=== PATIENT | female | born 1965 | race Hispanic/Latino ===

== ENCOUNTER 2024-09-20 18:34 | Emergency (ER) | payer BC ==
[~2024-09-20] VITALS: Ht 157.5 cm; Wt 76.2 kg
--- NOTE | 2024-09-20 18:45 | NUR ---
SEEN BY MANJEET SHEFFIELD AT TRIAGE, NOTIFIED OF B/P 171/, NO NEW ORDERS AT THIS TIME, NO HX OF HTN
--- NOTE | 2024-09-20 18:52 | ERN ---
ED Note History of Present Illness Stated Complaint: BODY PAINS Time Seen by MD: 18:35 Time Seen by Midlevel: 18:35 Dictation: Ms. Bhatt is a 59 year old female with no reported chronic health issues who presented to the Emergency Department this evening for evaluation of hip/back pain. She states that Thursday she developed right hip pain/radiating to the low back which has gotten progressively worse. She saw her PCP yesterday and was prescribed ibuprofen but it has not seem to help. She denies trauma/fall. She denies any fever, chills, shortness of breath, cough, chest pain, palpitations, edema, abdominal pain, nausea, vomiting, diarrhea, dysuria, incontinence bowel/bladder, focal weakness/paresthesia, headache, or dizziness.Upon arrival to the emergency department pain 8/10. Noted elevated blood pressure reading of 173/83. Allergies: Coded Allergies: No Known Drug Allergies (Unverified Allergy, Unknown, 09/20/24) Emergency Care VIDEO GAME PROGRAMMER: None Past Medical History Past Medical History: No Pertinent History Surgical History: None PSYCH History: no pertinent psych hx Social History: Negative, Lives with family History: Not Applicable RN Note Reviewed/Agreed w/PFSH: Yes Review of System Dictation REVIEW OF SYSTEMS: CONSTITUTIONAL: Patient denies fevers, chills, sweats and weight changes. EYES: Patient denies any visual symptoms. EARS, NOSE, AND THROAT: No difficulties with hearing. No symptoms of rhinitis or sore throat. CARDIOVASCULAR: Patient denies chest pains, palpitations, orthopnea and paroxysmal nocturnal dyspnea. RESPIRATORY: No dyspnea on exertion, no wheezing or cough. GI: No nausea, vomiting, diarrhea, constipation, abdominal pain, hematochezia or melena. : No urinary hesitancy or dribbling. No nocturia or urinary frequency. No hematuria. No incontinence. No abnormal urethral discharge. MUSCULOSKELETAL: States that on Thursday she developed right hip pain radiating to the right lower back. NEUROLOGIC: No chronic headaches, no seizures. Patient denies numbness, tingling or weakness. PSYCHIATRIC: Patient denies problems with mood disturbance. No problems with anxiety. ENDOCRINE: No excessive urination or excessive thirst. DERMATOLOGIC: Patient denies any rashes or skin changes. Initial Vital Sign VS Vital Signs Date Time Temp Pulse Resp B/P (MAP) Pulse Ox O2 Delivery O2 Flow Rate FiO2 3/18/25 18:41 99.0 79 16 171/83 97 Room Air Physical Exam Dictation Vital signs: Reviewed. Afebrile. Constitutional: Uncomfortable. Head/Face: Normocephalic, atraumatic. Eyes: Periorbital areas with no swelling, redness, or edema. Lids and lashes are normal. Conjunctival injection is absent. Sclera anicteric. Pupils equal, round, reactive to light. ENT: Pinnas intact and no signs of trauma or erythema. Ear canals clear and no discharge. TMs no erythema. No nasal discharge or bleeding noted. Oropharynx with no exudate, redness, swelling, masses, exudates, or evidence of obstruction. Uvula midline. Mucous membranes moist. Neck: Trachea midline, no masses palpated, and no cervical lymphadenopathy. No swelling. Supple, full range of motion. Chest/Axilla: No tenderness, no crepitus, no paradoxical movement, no retractions. Cardiovascular: Regular rate, regular rhythm, no murmur, no gallops. Symmetric pulses. No peripheral edema. BP elevated to 173/83 Respiratory: Respirations even and unlabored. Lung sounds clear; no wheezes, rales or rhonchi. Room air spo2 98%. Gastrointestinal: Inspection is normal. No distention is appreciated. Bowel sounds are normal. No mass or organomegaly . There is no tenderness. No rebound. No rigidity. No voluntary or involuntary guarding. No Salcedo's sign. Neurological: Normal speech, gross motor function intact, gross sensory function intact. No focal weakness/Paresthesia. Musculoskeletal/Extremities: All extremities have full range of motion, Symmetric pulses. Tenderness upon palpation right lumbar. No bony deformity noted. Ambulating with steady gait; states painful hip. She has good color, warmth, movement, and sensation to right toes. Capillary refill brisk. Negative straight leg test. Pain 8/10. Integumentary: Intact. Skin is normal color, warm and dry. Cap refill less than 2 seconds. Results (Laboratory/Radiology) Laboratory/Radiology Laboratory Tests Test 09/20/24 21:22 Urine Color LIGHT-YELLOW (YELLOW) Urine Appearance CLEAR (CLEAR) Urine pH 5.5 (5.0-8.0) Urine Specific [place] 1.022 (1.001-1.031) Urine Protein NEGATIVE mg/dL (NEGATIVE) Urine Glucose (UA) NEGATIVE mg/dL (NEGATIVE) Urine Ketones NEGATIVE mg/dL (NEGATIVE) Urine Occult Blood NEGATIVE (NEGATIVE) Urine Nitrate NEGATIVE (NEGATIVE) Urine Bilirubin NEGATIVE mg/dL (NEGATIVE) Urine Urobilinogen 0.2 mg/dL (0.2-1.0) Urine Leukocyte Esterase 75 Wendy/uL (NEGATIVE) H Urine RBC 0-1 /HPF (0-1) Urine WBC 2-5 /HPF (0-1) H Urine Squamous Epithelial Cells RARE /HPF (0-2) Urine Bacteria None /HPF (None Seen) Labs Reviewed?: Yes X-RAY Comment: PATIENT: MARSHA BHATT MR#: [id number] : 1965 SEX: F AGE: 59 LOCATION: [facility] ORDER 50 STATUS: REG REPORT#: [id number] SERVICE 49 REASON: pain ORDERING PHYSICIAN: MANJEET DOMINGUEZ NP PROCEDURE: HIP U 2V R - HIP UNILAT 2-3VW RIGHT HIP UNILAT 2-3VW RIGHT INDICATION: pain TECHNIQUE: HIP UNILAT 2-3VW RIGHT. FINDINGS AND IMPRESSION: No displaced fracture or dislocation is seen. Correlate clinically. There is mild soft tissue swelling No radiopaque foreign body is identified. DICTATED BY: OTIS FRAZIER MD DATE: 09/20/241955 ELECTRONICALLY SIGNED BY: OTIS FRAZIER MD DATE: 09/20/241958 ED Course ED Course Orders Procedure Category Date Status Time Urinalysis Profile LAB 09/20/24 Complete 18:44 Diazepam 2 Mg Tab PHA 09/20/24 Complete (Valium 2 Mg Tab) 19:00 Ketorolac PHA 09/20/24 Complete Tromethamine 30mg/Ml 19:00 Hip Unilat 2-3vw Right RAD 09/20/24 Resulted 18:50 Culture Urine RANDALL 09/20/24 Logged 21:40 Current Medications Medications (Trade) Dose Ordered Sig/Marvin Route PRN Reason Start Time Stop Time Status Last Admin Dose Admin Diazepam (VALium 2 mg Tab) 2 mg ONCE ONCE PO 09/20/24 19:00 09/20/24 19:01 DC 09/20/24 21:16 Ketorolac Tromethamine (toRADol) 30 mg ONCE ONCE IM 09/20/24 19:00 09/20/24 19:01 DC 09/20/24 21:16 Vital Signs Date Time Temp Pulse Resp B/P (MAP) Pulse Ox O2 Delivery O2 Flow Rate FiO2 09/20/24 18:41 99.0 79 16 171/83 97 Room Air Uneventful ED course. Temp 99. She had relief following dose p.o. Valium and IM Toradol. X-ray of the hip/pelvis unremarkable; no fracture or dislocation. UA + leukocyte esterase andUWBC 2-5; culture pending. Received initial dose nitrofurantoin. Findings were discussed with patient and all questions answered. Medical Decision Making MDM MDM: Differential diagnosis: UTI, sciatica, muscle strain, fracture pelvis/hip Rationale: Tests considered and ordered secondary to shared decision making include: Lab, x-ray Previous outside records reviewed: Old ER visits. Risk of complication and/or morbidity or mortality of patient management: None Medications-Per medication reconciliation Need for hospitalization: Patient does not meet criteria for hospitalization. Need for emergency major/minor surgery: No There are no social concerns with this patient. Prescription drug management: Robaxin, nitrofurantoin Prescriptions will include symptomatic care Patient's prior external medical records from other ER visits were reviewed by me as indicated. Prior testing and results from previous visits were reviewed. Prior tests were taken into account with medical decision making and resource utilization, independent historian/historians were used to obtain complete medical history. I independently interpreted the test that were performed, results were reviewed by me and considered findings on radiology if ordered. Medical management and examination interpretation discussions were had by me with other qualified healthcare professionals as indicated for the patient's care. DX & DISP Disposition: Discharge Departure Impression: Primary Impression: Hip pain, right Additional Impressions: Low back pain, Elevated blood pressure reading, UTI (urinary tract infection) Condition: Stable Scripts Methocarbamol (Robaxin) 750 Mg Tab 1 TAB PO BID for 30 Days, #10 TAB 0 Refills Prov: MANJEET DOMINGUEZ [employer]ENOGRAPHIC [employer] REPORTER 09/20/24 Nitrofurantoin Macrocrystal (Nitrofurantoin) 100 Mg Capsule 1 CAP PO BID for 7 Days, #14 CAP 0 Refills Prov: MANJEET DOMINGUEZ [employer]ENOGR[employer] REPORTER 09/20/24 Additional Instructions: Rest. Drink plenty of fluids. May continue ibuprofen or [id number] Tylenol as needed for discomfort. May take Robaxin every12 hours as needed for muscle spasms. Continue nitrofurantoin twice daily for seven days for diagnosis of UTI. Keep track/log of your blood pressure readings for follow up with your PCP. Follow up with your primary care physician later this week. Return to the emergency department for any worsening of symptoms or concerns. Time of Disposition: 22:00 MANJEET DOMINGUEZ NP Sep 20, 2024 18:51
--- NOTE | 2024-09-20 19:59 | HMCIMG ---
HIP UNILAT 2-3VW RIGHT INDICATION: pain TECHNIQUE: HIP UNILAT 2-3VW RIGHT. FINDINGS AND IMPRESSION: No displaced fracture or dislocation is seen. Correlate clinically. There is mild soft tissue swelling No radiopaque foreign body is identified.
[2024-09-20] MEDS: diazePAM 2 MG TAB PO ONE (21:16)
[2024-09-20] MEDS: ketOROlac 30MG VIAL (30MG/ML) IM ONE (21:16)
[2024-09-20 21:38] LABS: APPEARANCE,URINE CLEAR (CLEAR); BILIRUBIN,URINE NEGATIVE (NEGATIVE); COLOR,URINE LIGHT-YELLOW (YELLOW); GLUCOSE, URINE (UA) NEGATIVE (NEGATIVE); KETONES,URINE NEGATIVE (NEGATIVE); LEUKOCYTE ESTERASE ,URINE 75 Leu/uL (NEGATIVE); NITRATE,URINE NEGATIVE (NEGATIVE); OCCULT BLOOD,URINE NEGATIVE (NEGATIVE); PH,URINE 5.5 (5.0-8.0); PROTEIN,URINE NEGATIVE (NEGATIVE); UROBILINOGEN,URINE 0.2 mg/dL (0.2-1.0)
[2024-09-20 21:39] LABS: ADD UA MICROSCOPIC YES
[2024-09-20 21:43] LABS: MUCUS,URINE RARE LPF (None Seen); RBC,URINE 0-1 /HPF (0-1); SQUAMOUS EPITHELIAL CELL,UR RARE /HPF (0-2)
[2024-09-20] MEDS ORDERED: NITR100C PO (22:01)
[2024-09-20] MEDS ORDERED: METH-662 PO (22:01)
[2024-09-20 22:29] VITALS: BP 168/80; PULSE 82; RESP 16; TEMP 98.9; O2SAT 99
[2024-09-20] MEDS: NITROFURANTOIN MONOHYD/M-CRYST 100 MG CAPSULE PO ONE (22:33)
== END 2024-09-20 22:37 | disposition home or self-care (01) ==
LOC: EDH 18:34
DX: M25.551 Pain in right hip (principal); M54.50 Low back pain, unspecified; N39.0 Urinary tract infection, site not specified; R03.0 Elevated blood-pressure reading, without diagnosis of hypertension
CPT/HCPCS: 99284; 87086; 81001; 73502; 96372; J1885